=== PATIENT | female | born 1980 | race Caucasian/White ===

== ENCOUNTER → 2019-10-26 10:54 | Outpatient (CLI) | payer OTHER | END | disposition home or self-care (01) | LOC: D.CN 10:54 | PROVIDERS: ATTEND Psychiatry & Neurology Neurology | DX: R55 Syncope and collapse (principal) ==

== ENCOUNTER → 2020-03-21 09:35 | Outpatient (CLI) | payer OTHER ==
[2020-03-21 10:40] LABS: INR 0.95 (0.85-1.17); PROTIME 12.6 SECONDS (11.6-15.0)
[2020-03-21 10:49] LABS: ALBUMIN 3.5 g/dL (3.4-5.0); BILIRUBIN - INDIRECT 0.26 mg/dL (0.00-1.00); BILIRUBIN - TOTAL 0.31 mg/dL (0.2-1.3); CHOL - HDL RATIO 7.9 ratio (2.3-4.1); LDL-HDL RATIO 5.7 ratio (1.5-3.5); PROTEIN - SERUM 7.8 g/dL (6.4-8.2)
[2020-03-21 10:50] LABS: BILIRUBIN - DIRECT 0.05 mg/dL (0.00-0.30)
== END | disposition home or self-care (01) ==
LOC: D.US 09:00
PROVIDERS: ATTEND Internal Medicine Gastroenterology
DX: K76.0 Fatty (change of) liver, not elsewhere classified (principal)